=== PATIENT | female | born 1955 | race Hispanic/Latino ===

== ENCOUNTER → 2018-03-08 | Outpatient (CLI) | payer OTHER, MEDICARE ==
[~2018-03-08] MED LIST: ACET-48 PO; AEC81 PO; BACL10TA PO; CANA1TAB3 PO; CETI10TA57 PO; DOCU-282 PO; FENO48TA4 PO; GABA-529 PO; GENTOO OU; LISI-613 PO; MELO-108 PO; PRAV20TA4 PO; SIME125T3 PO
== END | disposition home or self-care (01) ==
LOC: OIH 09:49
PROVIDERS: ATTEND Internal Medicine
DX: I10 Essential (primary) hypertension (principal); M85.88 Other specified disorders of bone density and structure, other site; M47.814 Spondylosis without myelopathy or radiculopathy, thoracic region
CPT/HCPCS: 71046

== ENCOUNTER 2025-02-12 12:33 | Observation (INO) | payer OTHER ==
[~2025-02-12] VITALS: Ht 149.9 cm; Wt 67.1 kg
[~2025-02-12 12:33] MED LIST changes: -ACET-48 PO; +ACET-49 PO; +FENO48TA10 PO; -FENO48TA4 PO; -LISI-613 PO; +LISI20TA24 PO; -PRAV20TA4 PO; +PRAV20TA59 PO
--- NOTE | 2025-02-12 13:19 | EKG ---
[facility] Test Date: 2025-02-12 Test Time: 13:06:12 Pat Name: LANA PANIAGUA Department: DIRECT Patient ID: [facility] [id number] Room: DIRECT 09 Gender: F Adjunct Physical Education Instructor: [id number] : 1955 Requested By: LISA SHANE Order Number: [id number] Reading MD: Primo Madrid Measurements Intervals [place] Rate: 75 P: 73 AR: 197 QRS: -53 QRSD: 129 T: 32 QT: 413 QTc: 462 Interpretive Statements Sinus rhythm Nonspecific IVCD with LAD Left ventricular hypertrophy Compared to ECG 05/07/2016 18:23:00 Intraventricular conduction delay now present Left anterior fascicular block no longer present ST (T wave) deviation no longer present Electronically Signed On 02-12-2025 14:52:20 TRANSMISSION INSPECTOR by Primo Madrid Please click the below link to view image of tracing.
[2025-02-12 13:32] LABS: NUCLEATED RED BLOOD CELLS 0.0 % (0.0-0.19); PLATELET COUNT (AUTO) 304 K/uL (130-400); RED BLOOD CELL COUNT(AUTO) 2.67 MIL/uL (4.00-5.50); RED CELL DISTRIBUTION WIDTH 15.8 % (11.0-15.5); WHITE BLOOD COUNT (AUTO) 7.9 K/uL (4.8-10.8)
[2025-02-12 13:41] LABS: INR 0.97 (0.85-1.15)
--- NOTE | 2025-02-12 13:47 | NUR ---
DCP:HOME Pt currently lives at home with her son. Pt has a walker at home that she uses to ambulate. Pt receives 27 hrs a week in provider services and she assist with all ADLs, home management, and meals. PCP is Dr. Salmeron and uses [facility] for any RX needs. At PR pt will want to go home and family can assist with transportation.
[2025-02-12 13:49] LABS: % IRON SATURATION 3.4 % (22-44); IRON, SERUM 17.0 mcg/dL (50-170)
[2025-02-12 14:12] LABS: ASPARTATE AMINOTRANSFERASE 20 U/L (10-37); CREATINE KINASE, TOTAL 83 U/L (21-232); CREATININE 1.1 mg/dL (0.5-1.0); GLOMERULAR FILTR. RATE CALC 54 mL/min (>90); GLUCOSE,RANDOM 119 mg/dL (70-105); SODIUM SERUM 136 mmol/L (136-145); TOTAL PROTEIN, SERUM 7.0 g/dL (6.0-8.3); UREA NITROGEN, BLOOD 29 mg/dL (7-18)
--- NOTE | 2025-02-12 15:45 | NUR ---
BLOOD TRANSFUSION STARTED AT THIS TIME
[2025-02-12] MEDS: 1/2 NS 1000ML 1,000 ML IV SCH (21:10)
[2025-02-12 22:03] LABS: IMMATURE GRANULOCYTE ABSOLUTE 0.02 K/uL (0-1); NUCLEATED RED BLOOD CELLS 0.0 % (0.0-0.19); PLATELET COUNT (AUTO) 264 K/uL (130-400); RED BLOOD CELL COUNT(AUTO) 2.95 MIL/uL (4.00-5.50); RED CELL DISTRIBUTION WIDTH 15.9 % (11.0-15.5); WHITE BLOOD COUNT (AUTO) 7.2 K/uL (4.8-10.8)
--- NOTE | 2025-02-12 22:48 | HMCIMG ---
EXAM: CR CHEST, 2 VIEWS CLINICAL HISTORY: ASYMPTOMATIC ANEMIA UTI COMPARISON: CT CAP dated February 12, 2025 TECHNIQUE: Frontal and lateral radiographs of the chest. FINDINGS: Lines/Devices: None. Lungs: Radiographically clear. No consolidation or ground-glass opacities are observed. There is no pleural effusion. There is no pneumothorax. Mediastinum and cardiovascular structures: There is calcific aortic atherosclerosis. The cardiac silhouette is not enlarged. The central airway and mediastinal contours are unremarkable. Bones and soft tissues: Unremarkable. IMPRESSION: 1. No evidence of acute cardiopulmonary abnormalities. 2. Compared to prior CT CAP dated February 12, 2025, there is no acute cardiopulmonary abnormalities. /[place]
[2025-02-12 23:13] VITALS: O2SAT 98
--- NOTE | 2025-02-12 23:19 | HP ---
HISTORY AND PHYSICAL NOTE DATE OF CONSULTATION: 02/12/25 REASON FOR CONSULTATION: Fatigue HISTORY OF PRESENT ILLNESS: Patient noted with severe anemia is being admitted he has history of iron- deficiency anemia with recent colonoscopy which had colon polyps removed today's hemoglobin is 6.3 earlier three months ago was 10 diabetes hypothyroidism have been stable without any complications she has underlying depression that is controlled ALLERGIES: Coded Allergies: No Known Drug Allergies (Unverified Allergy, Unknown, 05/07/16) HOME MEDS: Reported Medications Gentamicin Sulfate (Gentak/Garamycin 0.3% Ophth Oint) 1 Appl/Gm Ooint, 1 APPL OU BID for 7 Days, APPL 05/10/16 Docusate Sodium (Doc-Q-Lace) 100 Mg Capsule, 100 MG PO BID PRN for CONSTIPATION - MOM INEFFECTIVE, CAP 05/08/16 Cetirizine HCl (Cetirizine HCl) 10 Mg Tablet, 10 MG PO DAILY, TAB 05/08/16 Meloxicam (Meloxicam) 15 Mg Tablet, 15 MG PO DAILY, TAB 05/08/16 Pravastatin Sodium (Pravastatin Sodium) 20 Mg Tablet, 20 MG PO DAILY, TAB 05/08/16 Baclofen (Baclofen) 10 Mg Tablet, 10 MG PO DAILY PRN for PAIN LEVEL 1 TO 5, TAB 05/08/16 Simethicone (Gas-X) 125 Mg Tab.chew, 125 MG PO TID PRN for GI GAS, TAB.CHEW 05/08/16 Acetaminophen (Mapap) 500 Mg Tablet, 500 MG PO BID PRN for PAIN LEVEL 1 TO 5, TA B 2tabs po bid prn for pain 05/08/16 Aspirin (ASPIRIN 81 MG ECTAB) 81 Mg Ectab, 81 MG PO DAILY, TAB.EC 05/08/16 Fenofibrate Nanocrystallized (Fenofibrate) 48 Mg Tablet, 48 MG PO DAILY, TAB 05/08/16 Lisinopril (Lisinopril) 20 Mg Tablet, 20 MG PO DAILY, TAB 05/08/16 Gabapentin (Gabapentin) 100 Mg Capsule, 100 MG PO DAILY, CAP 05/08/16 Canagliflozin/Metformin HCl (Invokamet 150-500 mg Tablet) 1 Each Tablet, 1 EACH PO BID, TAB 05/08/16 INPATIENT MEDS: Current Medications Medications Dose Ordered Sig/Beth Start Time Stop Time Status Last Admin Sodium Chloride 1,000 ml @ 75 mls/hr [id number] 02/12/25 19:30 03/14/25 19:29 02/12/25 21:10 Acetaminophen 650 mg Q4H PRN 02/12/25 19:30 03/14/25 19:29 Ondansetron HCl 4 mg Q6H PRN 02/12/25 19:30 03/14/25 19:29 Clonidine HCl 0.1 mg Q4H PRN 02/12/25 19:30 03/14/25 19:29 Pantoprazole Sodium 40 mg DAILY 02/13/25 09:00 03/15/25 08:59 Ceftriaxone Sodium 1 gm Q24H 02/12/25 19:30 02/22/25 19:29 02/12/25 20:55 VITAL SIGNS Vital Signs Date Time Temp Pulse Resp B/P (MAP) Pulse Ox O2 Delivery O2 Flow Rate FiO2 02/12/25 23:13 72 16 126/53 98 Room Air* 0 02/12/25 22:55 76 20 112/43 98 Room Air* 0 02/12/25 22:00 71 19 116/39 97 Room Air* 0 02/12/25 21:30 75 19 108/40 97 Room Air* 0 02/12/25 21:00 75 19 105/41 97 Room Air* 0 02/12/25 20:00 98.8 74 18 107/39 98 Room Air* 0 02/12/25 18:08 98.2 75 18 113/49 98 Room Air* 0 02/12/25 13:50 97.9 71 20 113/46 95 Room Air* 0 02/12/25 12:34 97.3 76 18 100/43 99 REVIEW OF SYSTEMS Ten review of system negative other than stated above PHYSICAL EXAM HEENT atraumatic normocephalic head Neck is supple Lungs are clear to auscultation percussion Heart was S1-S2 is heard no murmur Abdomen is soft and benign Extremities no pedal edema Skin exam unremarkable Psychiatric no depression Neurologic no focal deficits LABORATORY RESULTS Laboratory Tests 02/12/25 13:21: White Blood Count 7.9, Red Blood Count 2.67, Hemoglobin 6.7, Hematocrit 22.4, Mean Corpuscular Volume 83.9, Mean Corpuscular Hemoglobin 25.1, Mean Corpuscular Hemoglobin Concent 29.9, Red Cell Distribution Width 15.8, Platelet Count 304, Mean Platelet Volume 8.7, Nucleated Red Blood Cells 0.0, Red Blood Cell Morphology See comments, Reticulocyte Count (auto) 3.17802, Immature Reticulocyte Fraction 32.60, Prothrombin Time 10.3, Prothromb Time International Ratio 0.97, Activated Partial Thromboplast Time 21.9, Sodium Level 136, Potassium Level 4.0, Chloride Level 100, Carbon Dioxide Level 25, Blood Urea Nitrogen 29, Creatinine 1.1, Glomerular Filtration Rate Calc 54, Random Glucose 119, Total Calcium 8.5, Iron Level 17, Total Iron Binding Capacity 496, Percent Iron Saturation 3.4, Total Bilirubin 0.5, Aspartate Amino Transf (AST/SGOT) 20, Alanine Aminotransferase (ALT/SGPT) 22, Alkaline Phosphatase 68, Total Creatine Kinase 83, Troponin I High Sensitivity 6.0, Total Protein 7.0, Albumin 3.6, Vitamin B12 Level 1787, Folic Acid (LAB) > 20.00 02/12/25 21:58: White Blood Count 7.2, Red Blood Count 2.95, Hemoglobin 7.4, Hematocrit 23.8, Mean Corpuscular Volume 80.7, Mean Corpuscular Hemoglobin 25.1, Mean Corpuscular Hemoglobin Concent 31.1, Red Cell Distribution Width 15.9, Platelet Count 264, Mean Platelet Volume 8.6, Nucleated Red Blood Cells 0.0, Immature Granulocyte % (Auto) 0.3, Neutrophils (%) (Auto) 41.3, Lymphocytes (%) (Auto) 39.7, Monocytes (%) (Auto) 11.5, Eosinophils (%) (Auto) 6.8, Basophils (%) (Auto) 0.4, Neutrophils # (Auto) 3.0, Lymphocytes # (Auto) 2.9, Monocytes # (Auto) 0.8, Eosinophils # (Auto) 0.49, Basophils # (Auto) 0.03, Absolute Immature Granulocyte (auto 0.02 PROBLEM LIST: (1) UTI (urinary tract infection) ICD Codes: N39.0 - Urinary tract infection, site not specified (2) Anemia ICD Codes: D64.9 - Anemia, unspecified PLAN Transfuse blood Ferrlecit given Treat UTI with antibiotic Sliding scale for diabetes LISA SHANE MD Feb 12, 2025 23:19
[2025-02-13 00:10] LABS: APPEARANCE,URINE CLEAR (CLEAR); GLUCOSE, URINE (UA) >=1000 mg/dL (NEGATIVE); LEUKOCYTE ESTERASE ,URINE 25 Leu/uL (NEGATIVE); NITRATE,URINE NEGATIVE (NEGATIVE); OCCULT BLOOD,URINE NEGATIVE (NEGATIVE)
[2025-02-13 00:11] LABS: ADD UA MICROSCOPIC YES
[2025-02-13 00:12] LABS: SQUAMOUS EPITHELIAL CELL,UR FEW /HPF (0-2)
--- NOTE | 2025-02-13 00:28 | HMCIMG ---
EXAM: CT Chest, Abdomen and Pelvis without Intravenous Contrast CLINICAL HISTORY: Symptomatic anemia, UTI. TECHNIQUE: Axial computed tomography images of the chest, abdomen and pelvis without intravenous contrast. Dose reduction technique was used including one or more of the following: automated exposure control, adjustment of mA and kV according to patient size, and/or iterative reconstruction. Total exam DLP 431.7. Total CTDI volume 6.20. CONTRAST: Without COMPARISON: No priors are available for comparison. FINDINGS: CHEST: LUNGS: No lung nodules, infiltrates or mass. Bibasilar streaky atelectasis is present. PLEURAL SPACES: No pleural effusion. No pneumothorax. HEART AND MEDIASTINUM: No cardiomegaly. No significant pericardial effusion. There are coronary arterial calcifications present. There are mitral and aortic valve annulus calcifications. There are atheromatous changes of the thoracic aortic arch. LYMPH NODES: No significant sized mediastinal, axillary, hilar, supraclavicular adenopathy. ABDOMEN AND PELVIS: LIVER: The liver is unremarkable. No focal lesions. GALLBLADDER AND BILE DUCTS: Post-cholecystectomy state. No ductal dilation. PANCREAS: Unremarkable. SPLEEN: Unremarkable. ADRENAL GLANDS: Both adrenals are unremarkable. KIDNEYS, URETERS, AND BLADDER: The kidneys are unremarkable. Bilateral non-specific perinephric fat stranding is present. No renal sinus fat stranding. No renal or ureteric calculi, or hydroureteronephrosis. No bladder calculi. STOMACH AND BOWEL: No obstruction. No wall thickening. There are scattered colonic diverticula, without diverticulitis. There is evidence of prior surgery involving the ascending colon with end to end anastomosis. No bowel mass visualized. No CT evidence of colitis or acute diverticulitis. APPENDIX: The appendix is not visualized. PERITONEUM: No free fluid. No free air. LYMPH NODES: No lymphadenopathy. REPRODUCTIVE: The uterus and adnexa are unremarkable. VASCULATURE: There are atheromatous changes of the thoracic aortic arch. No aortic aneurysm. BONES AND SOFT TISSUES: There are degenerative changes in the spine. There is minimal levoscoliosis of the lumbar spine. There is a chronic appearing compression deformity of L5 vertebra. There is mild retrolisthesis of L5 over S1. There is grade I anterolisthesis of L4 over L5, likely degenerative. A few rim calcified nodules are present in the bilateral gluteal regions, likely injection granulomas. The abdominal wall demonstrates presence of a fat containing umbilical hernia, the defect measuring 2 cm in width. No acute osseous abnormality. IMPRESSION: 1. No acute findings. 2. No mass or adenopathy the chest, abdomen and pelvis. 3. Degenerative changes in the spine with minimal levoscoliosis of the lumbar spine, chronic appearing compression deformity of L5 vertebra, mild retrolisthesis of L5 over S1, and grade I anterolisthesis of L4 over L5, likely degenerative. /[place]
[2025-02-13 00:30] VITALS: BP 120/50; PULSE 73; RESP 16; TEMP 97.4
[2025-02-13] MEDS ORDERED: GABA-529 PO (02:51)
[2025-02-13] MEDS ORDERED: DAPA10TA PO (02:51)
[2025-02-13] MEDS ORDERED: HYDR-4060 PO (02:51)
[2025-02-13] MEDS ORDERED: APIX5TAB PO (02:51)
[2025-02-13] MEDS ORDERED: FISH1CAP27 PO (02:51)
[2025-02-13] MEDS ORDERED: GLIM4TAB36 PO (02:51)
[2025-02-13] MEDS ORDERED: FAMO40TA7 PO (02:51)
[2025-02-13] MEDS ORDERED: LEVO50CA5 PO (02:51)
[2025-02-13] MEDS ORDERED: FURO20TA4 PO (02:51)
[2025-02-13] MEDS ORDERED: MONT-39 PO (02:51)
[2025-02-13 03:51] VITALS: BP 122/58; PULSE 80; RESP 16; TEMP 98.4
[2025-02-13 04:19] LABS: NUCLEATED RED BLOOD CELLS 0.0 % (0.0-0.19); PLATELET COUNT (AUTO) 246.0 K/uL (130-400); RED BLOOD CELL COUNT(AUTO) 3.44 MIL/uL (4.00-5.50); RED CELL DISTRIBUTION WIDTH 15.9 % (11.0-15.5); WHITE BLOOD COUNT (AUTO) 7.8 K/uL (4.8-10.8)
[2025-02-13 04:28] LABS: CREATININE 0.8 mg/dL (0.5-1.0); GLOMERULAR FILTR. RATE CALC 79.0 mL/min (>90); GLUCOSE,RANDOM 114.0 mg/dL (70-105); SODIUM SERUM 136.0 mmol/L (136-145); UREA NITROGEN, BLOOD 22.0 mg/dL (7-18)
--- NOTE | 2025-02-13 05:32 | DS ---
Discharge Summary DIAGNOSE(S): [iron def anemia UTI] HOSPITAL COURSE SUMMARY: [Did well with blood transfusion IV iron and discharged before patient] SENIOR GAMES TECHNICIAN(S): [] PROCEDURE(S)/TREATMENT(S): [] PROBLEM(S): [] FOLLOW-UP TEST(S): [] DISCHARGE INSTRUCTIONS: [Follow up with PCP in one to and continue cefdinir b.i .d. for] Home Meds Reported Medications [place]-3 Fatty Acids/Fish Oil ([place] 3 1,000 mg Softgel) 300 Mg-1,000 Mg Capsule, 1 EACH PO DAILY PRN for DAILY, CAP 02/13/25 Dapagliflozin Propanediol (Farxiga) 10 Mg Tablet, 10 MG PO DAILY, TAB 02/13/25 Montelukast Sodium (Montelukast Sodium) 10 Mg Tablet, 10 MG PO DAILY, TAB 02/13/25 Levothyroxine Sodium (Levothyroxine) 50 Mcg Capsule, 1 CAP PO DAILY for 30 Days, #30 CAP 0 Refills 02/13/25 Furosemide (Furosemide) 20 Mg Tablet, 1 TAB PO DAILY for 30 Days, #30 TAB 0 Refills 02/13/25 Hydrocodone/Acetaminophen (Hydrocodon-Acetaminophen 5-325) 5 Mg-325 Mg Tablet, 1 EACH PO QIDP for PAIN, TAB 02/13/25 Gabapentin (Gabapentin) 100 Mg Capsule, 300 CAP PO TID PRN for HS for 30 Days, #90 CAP 0 Refills 02/13/25 Glimepiride (Glimepiride) 4 Mg Tablet, 4 MG PO BID, TAB 02/13/25 Apixaban (Eliquis) 5 Mg Tablet, 5 MG PO BID, TAB 02/13/25 Famotidine (Famotidine) 40 Mg Tablet, 40 MG PO DAILY, TAB 02/13/25 Gentamicin Sulfate (Gentak/Garamycin 0.3% Ophth Oint) 1 Appl/Gm Ooint, 1 APPL OU BID for 7 Days, APPL 05/10/16 Docusate Sodium (Doc-Q-Lace) 100 Mg Capsule, 100 MG PO BID PRN for CONSTIPATION - MOM INEFFECTIVE, CAP 05/08/16 Cetirizine HCl (Cetirizine HCl) 10 Mg Tablet, 10 MG PO DAILY, TAB 05/08/16 Meloxicam (Meloxicam) 15 Mg Tablet, 15 MG PO DAILY, TAB 05/08/16 Pravastatin Sodium (Pravastatin Sodium) 20 Mg Tablet, 20 MG PO DAILY, TAB 05/08/16 Baclofen (Baclofen) 10 Mg Tablet, 10 MG PO DAILY PRN for PAIN LEVEL 1 TO 5, TAB 05/08/16 Simethicone (Gas-X) 125 Mg Tab.chew, 125 MG PO TID PRN for GI GAS, TAB.CHEW 05/08/16 Acetaminophen (Mapap) 500 Mg Tablet, 500 MG PO BID PRN for PAIN LEVEL 1 TO 5, TAB 2tabs po bid prn for pain 05/08/16 Aspirin (ASPIRIN 81 MG ECTAB) 81 Mg Ectab, 81 MG PO DAILY, TAB.EC 05/08/16 Fenofibrate Nanocrystallized (Fenofibrate) 48 Mg Tablet, 48 MG PO DAILY, TAB 05/08/16 Lisinopril (Lisinopril) 20 Mg Tablet, 20 MG PO DAILY, TAB 05/08/16 Gabapentin (Gabapentin) 100 Mg Capsule, 100 MG PO DAILY, CAP 05/08/16 Canagliflozin/Metformin HCl (Invokamet 150-500 mg Tablet) 1 Each Tablet, 1 EACH PO BID, TAB 05/08/16 LISA SHANE MD Feb 13, 2025 05:32
--- NOTE | 2025-02-13 07:30 | NUR ---
FROM REPORT PT IS DC HM
--- NOTE | 2025-02-13 08:00 | NUR ---
dc sl removal alondra well cath tip intact dc instructions given verbal understanding dc papers signed awaiting transportation
[2025-02-13 09:00] VITALS: BP 123/48; PULSE 71; RESP 18; TEMP 98.3
== END 2025-02-13 10:30 | disposition home or self-care (01) ==
LOC: EDH 12:33 → DIRECT 12:34 → 4BH 22:04
PROVIDERS: ADMIT Internal Medicine; ATTEND Internal Medicine
DX: N39.0 Urinary tract infection, site not specified (principal); D50.9 Iron deficiency anemia, unspecified; E03.9 Hypothyroidism, unspecified; E11.9 Type 2 diabetes mellitus without complications; R53.83 Other fatigue; R79.1 Abnormal coagulation profile; Z86.0100 Personal history of colon polyps, unspecified; Z79.899 Other long term (current) drug therapy; Z98.890 Other specified postprocedural states
CPT/HCPCS: 96374; 96361 ×2; 96375; 36430; 83540; 83550; 82550; 84484; 80053; 85025; 85027 ×2; 85610; 85730; 85045; 86850; 86900; 86901; 86923 ×2; 87086; 82607; 82746; 81001; 36415 ×2; 71046; 71250; 74176; 93005; 80048; 82948; G0378 ×21; G0379; P9016 ×2; J0696; J1756